=== PATIENT | female | born 1995 | race American Indian/Alaskan Native ===

== ENCOUNTER 2017-07-24 10:07 | Emergency (ER) | payer MEDICAID, OTHER ==
[2017-07-24 10:07] VITALS: BMI 26.4
[2017-07-24 10:18] VITALS: BP 114/79; PULSE 82; RESP 18; TEMP 98.4; O2SAT 100
[2017-07-24 11:21] LABS: HCG,QUALITATIVE URINE NEGATIVE (NEGATIVE)
[2017-07-24 11:26] LABS: SQUAMOUS EPITHIAL 5 /hpf (0-5); URINE BILIRUBIN NEGATIVE (NEGATIVE); URINE BLOOD 1+ (NEGATIVE); URINE CLARITY Hazy (Clear); URINE COLOR Yellow (YELLOW); URINE GLUCOSE (UA) NORMAL (Normal); URINE LEUKOCYTE ESTERASE NEG Leu/uL (Negative); URINE PROTEIN NEGATIVE (NEGATIVE)
--- NOTE | 2017-07-24 12:08 | C.PDOC ---
History Of Present Illness 21 y/o female presents to ED with c/o abdominal pain for 1 week and vomiting for 2 days associated with lightheadedness. Patient reports pelvic pain with intercourse for 2 days and admits to urine frequency. Patient states last bowel movement was earlier today and reports she is unable to tolerate po intake, denies fever, chills, vaginal bleeding, vaginal discharge or any other complaints at this time. pmh of 2 ectopic pregnancies treated with medication. Time Seen by Provider: 07/24/17 10:38 Chief Complaint (Nursing): Abdominal Pain History Per: Patient History/Exam Limitations: no limitations Onset/Duration Of Symptoms: Days Current Symptoms Are (Timing): Still Present Location Of Pain/Discomfort: Diffuse Radiation Of Pain To:: None Quality Of Discomfort: "Pain" Past Medical History Reviewed: Historical Data, Nursing Documentation, Vital Signs Vital Signs: Last Vital Signs Temp 98.4 F 07/24/17 10:14 Pulse 82 07/24/17 10:14 Resp 18 07/24/17 10:14 BP 114/79 07/24/17 10:14 Pulse Ox 100 07/24/17 19:11 - Medical History PMH: No Chronic Diseases Surgical History: No Surg Hx - [facility] Procedures FAMILY THERAPY (07/26/13) INDIVID PSYCHOTHERAP NEC (07/26/13) OTHER GROUP THERAPY (07/26/13) Family History: States: No Known Family Hx - Social History Hx Alcohol Use: No Hx Substance Use: No - Immunization History Hx Tetanus Toxoid Vaccination: Yes Hx Influenza Vaccination: Yes Hx Pneumococcal Vaccination: No Review Of Systems Constitutional: Negative for: Fever, Chills Gastrointestinal: Positive for: Vomiting, Abdominal Pain Genitourinary: Positive for: Frequency. Negative for: Dysuria, Vaginal Discharge, Vaginal Bleeding Physical Exam - Physical Exam Appears: Non-toxic, No Acute Distress Skin: Warm, Dry, No Rash Head: Atraumatic, Normacephalic Eye(s): bilateral: Normal Inspection Oral Mucosa: Moist Neck: Normal ROM, Supple Cardiovascular: Rhythm Regular Respiratory: Normal Breath Sounds, No Rales, No Rhonchi, No Wheezing Gastrointestinal/Abdominal: Soft, Tenderness (suprapubic), No Guarding, No Rebound Back: No CVA Tenderness, No Paraspinal Tenderness Neurological/Psych: Oriented x3, Normal Speech, Normal Cognition ED Course And Treatment - Laboratory Results Result Diagrams: 07/24/17 12:44 07/24/17 12:44 O2 Sat by Pulse Oximetry: 100 (RA) Pulse Ox Interpretation: Normal Medical Decision Making Medical Decision Making: Plan: POC urine preg, Pelvic exam 12pm pt to be transferred to [facility]; there is currently another pt in there. 1315 pt in [facility] . pelvic done by me with KEITH Garland, as gluer and wedger. white d/c in vault with mild cmt and positive bilateral adnexal tednerness. Gill noted pt had removed her own heplock; bandaid applied. pt notified that i will order a pelvic sonogram. 1345 pt noted not to be in assianged area or in [facility]. dirty gown left on bed. pt apparently eloped. Disposition - Disposition Disposition: ELOPEMENT - ER ONLY Disposition Time: 14:00 Condition: STABLE Instructions: Acute Pelvic Pain Forms: [employer] (Chinese) - Clinical Impression Clinical Impression: Pelvic pain - PA / [employer]OR [employer] / Resident Statement MD/DO has reviewed & agrees with the documentation as recorded. - Scribe Statement The provider has reviewed the documentation as recorded by the Scribdenys Mejia All medical record entries made by the Nallely were at my direction and personally dictated by me. I have reviewed the chart and agree that the record accurately reflects my personal performance of the history, physical exam, medical decision making, and the department course for this patient. I have also personally directed, reviewed, and agree with the discharge instructions and disposition.
[2017-07-24 12:49] LABS: BASO % 0.5 % (0.0-2.0); EOS # 0.2 K/uL (0.0-0.7); EOS % 2.4 % (0.0-4.0); HEMOGLOBIN 11.4 g/dL (11.0-16.0); LYMPH # 2.1 K/uL (1.0-4.3); LYMPH % 30.5 % (20.0-40.0); MEAN CELL VOLUME 92.1 fL (81.0-99.0); MEAN CORPUSCULAR HEMOGLOBIN 30.7 pg (27.0-31.0); MEAN CORPUSCULAR HGB CONC 33.4 g/dL (33.0-37.0); MEAN PLATELET VOLUME 9.5 fL (7.2-11.7); MONO # 0.6 K/uL (0.0-0.8); MONO % 8.7 % (0.0-10.0); NEUT # 4.1 K/uL (1.8-7.0); NEUT % 57.9 % (50.0-75.0); RBC 3.7 Mil/uL (3.80-5.20); RED CELL DISTRIBUTION WIDTH 13.2 % (11.5-14.5)
[2017-07-24 12:59] LABS: ALBUMIN 3.8 g/dL (3.5-5.0); ALT/SGPT 15 U/L (9-52); AST/SGOT 23 U/L (14-36); BLOOD UREA NITROGEN 13 mg/dL (7-17); CALCIUM 9.1 mg/dl (8.6-10.4); GFR AFRICAN-AMERICAN > 60; GFR NON-AFRICAN AMERICAN > 60; LIPASE 41 U/L (23-300)
== END 2017-07-24 10:38 | disposition left against medical advice (07) ==
LOC: C.ER 10:07
DX: R10.2 Pelvic and perineal pain (principal)